=== PATIENT | male | born 1990 | race Caucasian/White ===

== ENCOUNTER → 2022-02-24 | Outpatient (CLI) | payer OTHER ==
--- NOTE | 2022-02-24 14:46 | RAD ---
XR SHOULDER_RIGHT 2+ VIEWS History: Reason: SHOULDER PAIN X 1 MONTH, NKI / Spl. Instructions: / History: Technique: 3 views right shoulder Comparison: None. Findings: No dislocation. No acute fracture. Impression: 1. No acute osseous abnormality. Electronically signed by: Alphonse Nix DO (02/24/2022 2:44 PM) [id number]
== END ==
LOC: RAD 13:59
PROVIDERS: ATTEND Nurse Practitioner Family
DX: M25.511 Pain in right shoulder (principal)
CPT/HCPCS: 73030